=== PATIENT | male | born 1960 | race Caucasian/White ===

== ENCOUNTER 2016-06-18 15:14 | Emergency (ER) | payer OTHER, MEDICAID ==
[2016-06-18 15:24] VITALS: BMI 23.7
[2016-06-18] MEDS ORDERED: Lidocaine 1%/Epinephrine 1:100000 30 ml vial IJ STA (15:37)
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
[2016-06-18] MEDS ORDERED: Lidocaine 1% Inj (20ml) ONE (15:55)
[2016-06-18] MEDS ORDERED: TDAP Vaccine 0.5 mL Syr IM ONE (16:44)
[2016-06-18 17:39] VITALS: BP 120/82; PULSE 77; RESP 17; TEMP 98; O2SAT 100
== END 2016-06-18 18:00 | disposition home or self-care (01) ==
LOC: ED 15:14
DX: S01.81XA Laceration without foreign body of other part of head, initial encounter (principal); V47.5XXA Car driver injured in collision with fixed or stationary object in traffic accident, initial encounter; Y92.410 Unspecified street and highway as the place of occurrence of the external cause; Z23 Encounter for immunization